=== PATIENT | female | born 1970 | race Caucasian/White ===

== ENCOUNTER 2019-07-06 09:13 | Day surgery (SDC) | payer OTHER ==
[2019-07-04 11:17] VITALS: BMI 34.9
[~2019-07-06 09:13] MED LIST: HYDROmorphone 0.5 MG/0.5 ML SYRINGE IVP PRN; LACTATED RINGERS 1,000 ML IV SCH; ONDANSETRON 4 MG/2 ML VIAL IVP PRN
[2019-07-06 09:35] VITALS: TEMP 97.2
[2019-07-06 09:45] LABS: Glucose,Whole Blood 97 mg/dL (75-99)
[2019-07-06] MEDS ORDERED: LIDOCAINE 1% 20 ML VIAL (10MG/ML) FOR IV START INTRADERMA ONE (09:45)
[2019-07-06] MEDS ORDERED: LACTATED RINGERS 1,000 ML IV ONE (09:45)
[2019-07-06] MEDS ORDERED: PROPOFOL 10 MG/ML 20 ML VIAL IV ONE (10:09)
[2019-07-06] MEDS ORDERED: MIDAZOLAM 2 MG/2 ML VIAL ONE (10:09)
[2019-07-06] MEDS ORDERED: LIDOCAINE 1% INJ 10MG/ML (20 ML MDV) ONE (10:09)
[2019-07-06] MEDS ORDERED: KETAMINE 10 MG/ML 20 ML VIAL ONE (10:09)
--- NOTE | 2019-07-06 11:09 | P.PCN ---
Date of Procedure: 07/06/19 Description of Procedure: Brief history: Patient is a pleasant scheduled for an elective upper endoscopy as well as colonoscopy as a part of evaluation of iron deficiency anemia. Patient denies any prior endoscopic evaluations. Denies any blood per rectum, melena or hematemesis. She does report change in her bowels over the past year described as more loose bowel movements but has had problems with frequency her whole life. No family history of colon cancer. Procedure performed: Esophagogastroduodenoscopy with biopsy Colonoscopy with polypectomy and biopsy Estimated blood loss: Minimal. Preoperative diagnosis: Iron deficiency anemia Anesthesia: MAC Procedure: After informed consent was obtained from the patient was brought into the endoscopy unit and IV sedation was administered by anesthesia under continuous monitoring. Initially upper endoscopy was done. The Olympus GF 190 video endoscope was inserted into the mouth and esophagus intubated without any difficulty and was gradually advanced into the stomach and duodenum and carefully examined. The bulb and second part of the duodenum appeared normal, With biopsies taken. The scope was then withdrawn into the stomach adequately insufflated with air and upon careful examination the antrum and body, cardia and fundus appeared normal, Except for some nodularity and erythema in a linear fashion in the antrum and body suggestive of mild gastritis with biopsies taken. The scope was then withdrawn into the esophagus. The GE junction was located at 39 cm to the incisor, with a 1 cm hiatal hernia noted. It appeared regular with no erythema erosions or ulcerations. Rest of the esophagus appeared normal. Patient tolerated the procedure well. At this time the patient continued to remain sedation. Initial digital rectal examination was normal. Olympus CF 190 video colonoscope was then inserted into the rectum and advanced to the sigmoid which was somewhat tortuous and fixed. At this time the videocolonoscope was exchanged for a pediatric colonoscope which was inserted into the rectum and gradually advanced to the cecum without any difficulty. Careful examination was performed as the scope was gradually being withdrawn. The prep was good. The cecum, ascending colon, transverse col on, descending colon, sigmoid colon and rectum appeared normal. 2 diminutive 2 mm rectal polyp removed with cold forcep polypectomy. Random biopsies taken of the right colon due to altered bowel habits to rule out microscopic colitis. Retroflexion was performed in the rectum and no lesions were noted. Patient tolerated the procedure well. Impression: 1. Mild gastritis in body, biopsied. Small hiatal hernia. Duodenal biopsies. 2. Cold forcep polypectomy of 2 diminutive rectal polyps. Random biopsies of the right and left colon given altered bowel habits. 3. No evidence of bleeding or pathology to explain iron deficiency anemia on upper or lower endoscopy. Recommendations: Findings of this examination were discussed with the patient as well as her daughter. Okay to resume diet. Okay to resume medications. Follow-up with hematology service as previously scheduled. Anticipate repeat colonoscopy in 5 years for colon polyps, pending pathology from polypectomy.
[2019-07-06 11:32] VITALS: BP 101/65; PULSE 138; RESP 18
== END 2019-07-06 12:15 | disposition home or self-care (01) ==
LOC: ORWHC2ENDO 09:13
PROVIDERS: ATTEND Internal Medicine
DX: K29.50 Unspecified chronic gastritis without bleeding (principal); K62.1 Rectal polyp; K44.9 Diaphragmatic hernia without obstruction or gangrene; D50.9 Iron deficiency anemia, unspecified; E07.9 Disorder of thyroid, unspecified; F32.9 Major depressive disorder, single episode, unspecified; M06.9 Rheumatoid arthritis, unspecified; M79.7 Fibromyalgia; M41.9 Scoliosis, unspecified; K21.9 Gastro-esophageal reflux disease without esophagitis; R13.10 Dysphagia, unspecified; Z87.891 Personal history of nicotine dependence; Z79.1 Long term (current) use of non-steroidal anti-inflammatories (NSAID); Z79.890 Hormone replacement therapy; Z79.891 Long term (current) use of opiate analgesic; Z79.52 Long term (current) use of systemic steroids; Z79.899 Other long term (current) drug therapy; Z88.2 Allergy status to sulfonamides; Z91.09 Other allergy status, other than to drugs and biological substances
CPT/HCPCS: 81025; 88305; 45380; 43239; J2250; J2001; J2704

== ENCOUNTER 2020-01-19 17:02 | Emergency (ER) | payer OTHER ==
--- NOTE | 2020-01-19 17:57 | XR ---
EXAMINATION TYPE: XR knee complete RT DATE OF EXAM: 01/19/2020 CLINICAL HISTORY: History of rheumatoid arthritis, pain, and swelling TECHNIQUE: Three views of the right knee are obtained. COMPARISON: None. FINDINGS: There is no acute fracture/dislocation evident in right knee. The tri-compartment joint s paces appear within normal limits. The overlying soft tissue appears unremarkable. IMPRESSION: There is no acute fracture or dislocation in the right knee.
--- NOTE | 2020-01-19 18:04 | ED ---
Lower Extremity Injury HPI - General Chief Complaint: Extremity Injury, Lower Stated Complaint: Leg pain Time Seen by Provider: 01/19/20 17:24 Source: patient Mode of arrival: wheelchair Limitations: no limitations - History of Present Illness Initial Comments: Patient is a 49-year-old female with severe rheumatoid arthritis presenting to the emergency department with a chief complaint of leg pain. Patient reports yesterday she was walking and noticed a sudden "pop" in the right gastrocnemius region. States it was sudden onset of pain so she applied a tight wrap and continued through today. Patient states she continued to favor her right leg. Patient reports today she was walking while carrying an object when she felt sudden onset of pain in a similar fashion and the pain became significantly worse. Patient reports her right calf feels "hard". States she is not able to fully plantar or dorsiflex the foot. States she is unable to weight-bear on the right leg. Does report putting ice compress an taking [place] at home. She is not requesting any pain medications. - Related Data Home Medications Medication Instructions Recorded Confirmed Folic Acid 1 mg PO DAILY 07/04/19 09/01/19 HYDROcodone/APAP 7.5-325MG [[place] 1 tab PO Q6HR PRN 07/04/19 09/01/19 7.5-325] Ibuprofen 400 mg PO DIRECTED PRN 07/04/19 09/01/19 Iron Injections 1 dose SQ DIRECTED 07/04/19 09/01/19 Levothyroxine Sodium [Synthroid] 175 mcg PO DAILY 07/04/19 09/01/19 Omeprazole 40 mg PO DAILY 07/04/19 09/01/19 SUMAtriptan SUCCINATE [Imitrex] 50 mg PO ONCE PRN 07/04/19 09/01/19 Tocilizumab [Actemra] 162 mg SQ WEEKLY 07/04/19 09/01/19 Venlafaxine HCl ER [Effexor Xr] 150 mg PO DAILY 07/04/19 09/01/19 predniSONE 5 mg PO DAILY 07/04/19 09/01/19 Allergies Allergy/AdvReac Type Severity Reaction Status Date / Time adhesive tape Allergy Unknown red Verified 01/19/20 17:24 irritated skin-oozing, itchy sulfamethoxazole Allergy Rash/Hives Verified 01/19/20 17:24 [From Bactrim] trimethoprim [From Bactrim] Allergy Rash/Hives Verified 01/19/20 17:24 Review of Systems ROS Statement: Those systems with pertinent positive or pertinent negative responses have been documented in the HPI. ROS Other: All systems not noted in ROS Statement are negative. Past Medical History Past Medical History: Blood Disorder, Fibromyalgia, GERD/Reflux, Hyperlipidemia, Rheumatoid Arthritis (RA), Thyroid Disorder Additional Past Medical History / Comment(s): IRON DEFICIENCY ANEMIA, MIGRAINES, CHRONIC PAIN. HEAVY PERIODS. History of Any Multi-Drug Resistant Organisms: MRSA Date of last positivie culture/infection: MAY 30 2017 MDRO Source:: LEFT AXILLA Past Surgical History: Adenoidectomy, Joint Replacement, Orthopedic Surgery, Tonsillectomy Additional Past Surgical History / Comment(s): LEFT KNEE REPLACEMENT, GANGLION CYST REMOVAL LEFT WRIST. SURGICAL DEBRIDEMENT OF LEFT AXILLA INFECTION. Past Anesthesia/Blood Transfusion Reactions: No Reported Reaction Past Psychological History: Depression Smoking Status: Former smoker Past Alcohol Use History: None Reported Past Drug Use History: None Reported General Exam Limitations: no limitations General appearance: alert, in no apparent distress, obese Head exam: Present: atraumatic, normocephalic, normal inspection Eye exam: Present: normal appearance, PERRL, EOMI Pupils: Present: normal accommodation ENT exam: Present: normal exam, normal oropharynx, mucous membranes moist, TM's normal bilaterally, normal external ear exam Neck exam: Present: normal inspection, full ROM Respiratory exam: Present: normal lung sounds bilaterally Cardiovascular Exam: Present: regular rate, normal rhythm, normal heart sounds Extremities exam: Present: normal inspection (No signs of trauma. Swelling noted at the right calf when compared to her left.), full ROM (Full range of motion with flexion and extension. Limited range of motion in the right foot with plantar and dorsiflexion due to pain.), tenderness (Tenderness in the popliteal region as well gastrocnemius muscle.), normal capillary refill, calf tenderness (Right calf tenderness.), other (Plus to the cells present posterior tibialis bilaterally.) Back exam: Present: normal inspection, full ROM Neurological exam: Present: alert, oriented X3 Psychiatric exam: Present: normal affect, normal mood Skin exam: Present: warm, dry, intact, normal color Course Vital Signs 01/19/20 17:21 Temperature 98.9 F Pulse Rate 99 Respiratory 20 Rate Blood Pressure 149/76 O2 Sat by Pulse 100 Oximetry Procedures - Orthopedic Splinting/Casting Injury #1 Side: right Lower Extremity Injury Location: short leg Lower Extremity Immobilizer: posterior splint, Shaw wrap, synthetic pre-padded splint Other Orthopedic Equipment: crutches Medical Decision Making - Medical Decision Making Patient is a 49-year-old female presenting to emergency Department with chief complaint right leg pain. Sudden onset of pain started since yesterday she felt a "pop". Today she felt the same feeling as she was walking and cause her significant pain. On exam she does have some swelling in the right gastrocnemius region and it feels firm to palpation. Patient also has tenderness in the popliteal region. A suspect patient has a gastrocnemius tear was started proximal site of origin. X-ray is unremarkable. Posterior splint applied. I offered the patient analgesia but she declined. Also give the patient prescription for crutches. Return parameters thoroughly discussed with patient is understanding and agreeable. She was advised to follow-up with special forces specialist. Case discussed with physician. Disposition Clinical Impression: Strain of right gastrocnemius muscle, Right calf pain Disposition: HOME SELF-CARE Condition: Stable Instructions (If sedation given, give patient instructions): Tendon Rupture (ED) Additional Instructions: Follow-up with special forces specialist. Alternate between Tylenol and Motrin for pain control. Return to emergency department if symptoms worsen. Is patient prescribed a controlled substance at d/c from ED?: No Referrals: Sid Jean MD [Primary Care Provider] - 1-2 days Billy Chandler MD [Medical Doctor] - 1-2 days Time of Disposition: 18:13
[2020-01-19 18:41] VITALS: BP 133/82; PULSE 93; RESP 18; TEMP 98.1
== END 2020-01-19 18:35 | disposition home or self-care (01) ==
LOC: EC 17:02
DX: S86.111A Strain of other muscle(s) and tendon(s) of posterior muscle group at lower leg level, right leg, initial encounter (principal); K21.9 Gastro-esophageal reflux disease without esophagitis; E07.9 Disorder of thyroid, unspecified; F32.9 Major depressive disorder, single episode, unspecified; Z79.51 Long term (current) use of inhaled steroids; Z79.890 Hormone replacement therapy; Z79.899 Other long term (current) drug therapy; Z88.1 Allergy status to other antibiotic agents; Z88.2 Allergy status to sulfonamides; Z91.048 Other nonmedicinal substance allergy status; Z87.891 Personal history of nicotine dependence; Z96.652 Presence of left artificial knee joint; X50.9XXA Other and unspecified overexertion or strenuous movements or postures, initial encounter; Y93.01 Activity, walking, marching and hiking
CPT/HCPCS: 29515; 99283

== ENCOUNTER 2021-03-10 18:01 | Emergency (ER) | payer OTHER ==
[2021-03-10 18:06] VITALS: BP 121/62; PULSE 89; RESP 20; TEMP 98.7
[2021-03-10 18:52] LABS: Appearance,Urine Turbid (Clear); Bacteria,Urine Few /hpf; Bilirubin,Urine Negative (Negative); Blood,Urine Large (Negative); Color,Urine Yellow; Glucose,Urine (UA) Negative (Negative); Ketones,Urine Negative (Negative); Leukocyte Esterase,Urine Large (Negative); Mucus,Urine Few /hpf; Nitrite,Urine Positive (Negative); PH, Urine 5.5 (5.0-8.0); Protein,Urine 1+ (Negative); RBC,Urine 144 /hpf (0-5); Specific Gravity,Urine 1.029 (1.001-1.035); Squamous Epithelial Cell,Urine 14 /hpf (0-4); Urobilinogen,Urine <2.0 mg/dL (<2.0); WBC,Urine >182 /hpf (0-5)
[2021-03-10] MEDS ORDERED: CEPHALEXIN 500 MG CAP PO STA (19:22)
[2021-03-10] MEDS ORDERED: PHENAZOPYRIDINE 200 MG TAB PO STA (19:25)
--- NOTE | 2021-03-10 19:30 | ED ---
General Adult HPI - General Chief complaint: Recheck/Abnormal Lab/Rx Stated complaint: UTI Time Seen by Provider: 03/10/21 18:19 Source: patient Mode of arrival: ambulatory Limitations: no limitations - History of Present Illness Initial comments: Patient is a 50-year-old female with past medical history of fibromyalgia, GERD, hyperlipidemia, rheumatoid arthritis, thyroid disorder presents emergency Department complaining of urinary complaints. She states she has been having burning urination for the last 3 days or so. She denies any vaginal bleeding. She denies any hematuria. She denies any abdominal pain. She does have a history of UTIs and states that this feels like. She denies any vaginal discharge or bleeding, and denies any history of STI's. She has any nausea or vomiting, chest pain, shortness breath, fevers, chills, cough. She otherwise has no acute complaints at this time. Patient's concerned for urinary tract infection. - Related Data Home Medications Medication Instructions Recorded Confirmed Folic Acid 1 mg PO DAILY 07/04/19 09/01/19 HYDROcodone/APAP 7.5-325MG [[place] 1 tab PO Q6HR PRN 07/04/19 09/01/19 7.5-325] Ibuprofen 400 mg PO DIRECTED PRN 07/04/19 09/01/19 Iron Injections 1 dose SQ DIRECTED 07/04/19 09/01/19 Levothyroxine Sodium [Synthroid] 175 mcg PO DAILY 07/04/19 09/01/19 Omeprazole 40 mg PO DAILY 07/04/19 09/01/19 SUMAtriptan succinate [Imitrex] 50 mg PO ONCE PRN 07/04/19 09/01/19 Tocilizumab [Actemra] 162 mg SQ WEEKLY 07/04/19 09/01/19 Venlafaxine HCl ER [Effexor Xr] 150 mg PO DAILY 07/04/19 09/01/19 predniSONE 5 mg PO DAILY 07/04/19 09/01/19 Previous Rx's Medication Instructions Recorded Cephalexin [Keflex] 500 mg PO Q12HR 5 Days #10 cap 03/10/21 Phenazopyridine [Pyridium] 100 mg PO TID #9 tablet 03/10/21 Allergies Allergy/AdvReac Type Severity Reaction Status Date / Time adhesive tape Allergy Unknown red Verified 03/10/21 18:06 irritated skin-oozing, itchy sulfamethoxazole Allergy Rash/Hives Verified 03/10/21 18:06 [From Bactrim] trimethoprim [From Bactrim] Allergy Rash/Hives Verified 03/10/21 18:06 Review of Systems ROS Statement: Those systems with pertinent positive or pertinent negative responses have been documented in the HPI. Review of Systems: CONST: Denies fever EYES: Denies blurry vision ENT: Denies nasal congestion C/V: Denies Chest pain RESP: Denies shortness of breath GI: Denies abdominal pain : Endorses dysuria SKIN: Denies rash. MSK: Denies joint pain. NEURO: Denies headache ROS Other: All systems not noted in ROS Statement are negative. Past Medical History Past Medical History: Blood Disorder, Fibromyalgia, GERD/Reflux, Hyperlipidemia, Rheumatoid Arthritis (RA), Thyroid Disorder Additional Past Medical History / Comment(s): IRON DEFICIENCY ANEMIA, MIGRAINES, CHRONIC PAIN. HEAVY PERIODS. History of Any Multi-Drug Resistant Organisms: MRSA Date of last positivie culture/infection: MAY 30 2017 MDRO Source:: LEFT AXILLA Past Surgical History: Adenoidectomy, Joint Replacement, Orthopedic Surgery, Tonsillectomy Additional Past Surgical History / Comment(s): LEFT KNEE REPLACEMENT, GANGLION CYST REMOVAL LEFT WRIST. SURGICAL DEBRIDEMENT OF LEFT AXILLA INFECTION. Past Anesthesia/Blood Transfusion Reactions: No Reported Reaction Past Psychological History: Depression Smoking Status: Vaper Past Alcohol Use History: None Reported Past Drug Use History: None Reported General Exam - General Exam Comments Initial Comments: General: Appears in no acute distress. HEAD: Normal with no signs of head trauma. EYES: EOMI ENT: Hearing grossly intact, normal oropharynx. RESPIRATORY: Clear breath sounds bilaterally C/V: Regular rate and rhythm. S1 and S2 auscultated. ABD: Abd is soft, nontender, nondistended. There is no guarding. No CVA tenderness to percussion. EXT: No obvious deformity. SKIN: No rashes or lesions observed on exposed skin. NEURO: Alert and oriented 4. Limitations: no limitations Course Vital Signs 03/10/21 18:04 Temperature 98.7 F Pulse Rate 89 Respiratory 20 Rate Blood Pressure 121/62 O2 Sat by Pulse 99 Oximetry Medical Decision Making - Medical Decision Making Based on the patient's presentation and physical exam, I'm concerned for possible urinary tract infection and patient. We will obtain a urinalysis as well as a urine test. She was in agreement with this plan. Laboratory studies are remarkable for negative test. Patient's urinalysis does appear to be a contaminated catch however does have a significant amount of WBCs, as well as leukoesterase and nitrates. Patient states that she started her period while she was in the bathroom which explains the blood that is present. Due to her symptomatic urinary complaints in addition to the urinalysis, we will treat her as a UTI. I did explain this with her and she was in agreement with this plan. Patient will be started on Keflex here in the emergency department and requested a dose of Pyridium. She'll also be given an outpatient prescription. I will provide the patient with a prescription for Keflex 500 mg twice a day for 5 days, Pyridium. I instructed the patient to follow up with their PCP in the next 3 days. . I explained that the patient should return to the emergency department if they experience any worsening symptoms. Strict return precautions were discussed with the patient. The patient expressed understanding of these instructions. I answered all questions that the patient had. The patient was discharged home in improved condition with their prescriptions and follow up information. - Lab Data Lab Results 03/10/21 03/10/21 Range/Units 18:26 18:26 Urine Color Yellow Urine Appearance Turbid H (Clear) Urine pH 5.5 (5.0-8.0) Ur Specific [place] 1.029 (1.001-1.035) Urine Protein 1+ H (Negative) Urine Glucose (UA) Negative (Negative) Urine Ketones Negative (Negative) Urine Blood Large H (Negative) Urine Nitrite Positive H (Negative) Urine Bilirubin Negative (Negative) Urine Urobilinogen <2.0 (<2.0) mg/dL Ur Leukocyte Esterase Large H (Negative) Urine RBC 144 H (0-5) /hpf Urine WBC >182 H (0-5) /hpf Urine WBC Clumps Few H (None) /hpf Ur Squamous Epith Cells 14 H (0-4) /hpf Urine Bacteria Few H (None) /hpf Urine Mucus Few H (None) /hpf Urine HCG, Qual Not Detected (Not Detectd) Disposition Clinical Impression: UTI (urinary tract infection), Dysuria Disposition: HOME SELF-CARE Condition: Good Instructions (If sedation given, give patient instructions): Urinary Tract Infection in Women (ED) Prescriptions: Cephalexin [Keflex] 500 mg PO Q12HR 5 Days #10 cap Phenazopyridine [Pyridium] 100 mg PO TID #9 tablet Is patient prescribed a controlled substance at d/c from ED?: No Referrals: Sid Jean MD [Primary Care Provider] - 1-2 days
== END 2021-03-10 19:52 | disposition home or self-care (01) ==
LOC: EC 18:01
DX: N39.0 Urinary tract infection, site not specified (principal); B96.20 Unspecified Escherichia coli [E. coli] as the cause of diseases classified elsewhere; E78.5 Hyperlipidemia, unspecified; K21.9 Gastro-esophageal reflux disease without esophagitis; M06.9 Rheumatoid arthritis, unspecified; F32.9 Major depressive disorder, single episode, unspecified; G43.909 Migraine, unspecified, not intractable, without status migrainosus; M79.7 Fibromyalgia; F17.290 Nicotine dependence, other tobacco product, uncomplicated; Z79.52 Long term (current) use of systemic steroids; Z79.899 Other long term (current) drug therapy; Z88.1 Allergy status to other antibiotic agents; Z88.2 Allergy status to sulfonamides
CPT/HCPCS: 36415; 81001; 81025; 87077; 87086; 87186; 99283

== ENCOUNTER → 2023-11-05 | Outpatient (CLI) | payer OTHER ==
--- NOTE | 2023-11-05 13:02 | BD ---
EXAMINATION TYPE: Axial Bone Density DATE OF EXAM: 11/05/2023 CLINICAL HISTORY: 53 years old Female. ICD-10 CODE: M81.0 AGE RELATED OSTEOPOROSIS Height: 67 Weight: 223.9 FRAX RISK QUESTIONS: Alcohol (3 or more units per day): no Family History (Parent hip fracture): no Glucocorticoids (More than 3mos): yes (Ex: prednisone, prednisolone, methylprednisolone, dexamethasone, and hydrocortisone). History of Fracture in Adulthood: no Secondary Osteoporosis: 1. Type 1 Diabetes: no 2. Hyperthyroidism: no 3. Menopause before 45: no 4. Malnutrition: no 5. Chronic liver disease: no Rheumatoid Arthritis: yes Current Tobacco Use: no RISK FACTORS HISTORY OF: Surgery to Spine/Hip(right/left)/Wrist (right/left): no MEDICATIONS: Thyroid Medications: synthroid How Long: since 2016 EXAM MEASUREMENTS: Bone mineral densitometry was performed using the [employer] System. Bone mineral density as measured about the Lumbar spine is: ----- L1-L4(G/cm2): 1.131 T Score Values are as follows: ----- L1: -1.1 ----- L2: 0.0 ----- L3: -0.4 ----- L4: -0.3 ----- L1-L4: -0.4 Z Score Values are as follows: ----- L1: -1.5 ----- L2: -0.4 ----- L3: -0.8 ----- L4: -0.7 ----- L1-L4: -0.8 Bone mineral density : baseline Bone mineral density about the R hip (g/cm2): 1.007 Bone mineral density about the L hip (g/cm2): 0.971 T Score values are as follows: -----R Neck: -0.6 -----L Neck: -1.3 -----R Total: 0.0 -----L Total: -0.3 Z Score values are as follows: -----R Neck: -0.4 -----L Neck: -1.0 -----R Total: -0.2 -----L Total: -0.5 Bone mineral density : baseline FRAX%s: The graph provided illustrates a 11.4% chance for a major osteoporotic fx and a 0.9% chance f or the hips probability for fx in 10 years time. IMPRESSION: Normal (Values between +1 and -1 indicate normal bone mass). Consider repeating this study in 5 year s or sooner if there is some new clinical indication. NOTE: T-SCORE=SD OF THE YOUNG ADULT MEAN.
== END | disposition home or self-care (01) ==
LOC: RADBDWWP 10:41
PROVIDERS: ATTEND Family Medicine
DX: M81.0 Age-related osteoporosis without current pathological fracture (principal); M85.851 Other specified disorders of bone density and structure, right thigh
CPT/HCPCS: 77080